=== PATIENT | female | born 1960 | race Caucasian/White ===

== ENCOUNTER 2018-11-20 10:13 | Inpatient (IN) | payer OTHER, BC ==
[~2018-11-20 10:13] MED LIST: CEFAZOLIN 1 GM INJ; DESFLURANE 15 MIN; LIDOCAINE 2% (SDV) 5 ML INJ
[2018-11-20] MEDS ORDERED: GELATIN SIZE 100 SPONGE (12:21)
[2018-11-20] MEDS ORDERED: PROPOFOL 20 ML (12:24)
[2018-11-20] MEDS ORDERED: ROCURONIUM 50 MG INJ (12:30)
[2018-11-20] MEDS ORDERED: HYDROmorphONE 2 MG/ML SYG (12:30)
[2018-11-20] MEDS ORDERED: PHENYLephrine 10 MG INJ (12:32)
[2018-11-20] MEDS: D5W-0.45 NACL + KCL 20 MEQ 1,000 ML IV ×3 (12:36→22:36)
[2018-11-20] MEDS: CEFAZOLIN 1 GM/50 ML (PMX) 50 ML IVPB ×2 (13:00→20:57)
[2018-11-20] MEDS ORDERED: ACETAMINOPHEN 325 MG TAB PO (13:00)
[2018-11-20] MEDS ORDERED: NALOXONE (0.4 MG/ML) INJ IV (13:00)
[2018-11-20] MEDS ORDERED: AL HYDROX/MG HYDROX/SIMETH 30 ML CUP PO (13:00)
[2018-11-20] MEDS ORDERED: DIPHENHYDRAMINE 50 MG INJ IV (13:00)
[2018-11-20] MEDS ORDERED: CEPASTAT LOZENGE MT (13:00)
[2018-11-20] MEDS ORDERED: DIPHENHYDRAMINE 25 MG CAP PO (13:00)
[2018-11-20] MEDS ORDERED: HYDROmorphONE 0.5 MG/0.5 ML SYG IV (13:00)
[2018-11-20] MEDS ORDERED: BISACODYL 10 MG SUPP PR (13:00)
[2018-11-20] MEDS: SURGIFOAM POWDER 1 GM KIT (14:02)
[2018-11-20] MEDS: BUPIVACAINE 0.5%/EPI (SDV) 30 ML INJ (14:02)
[2018-11-20] MEDS: THROMBIN (BOVINE) 5,000 UNIT VIAL TP (14:02)
[2018-11-20] MEDS: POLYMYXIN/BACITRACIN 1L IRRIG (14:02)
[2018-11-20] MEDS ORDERED: DEXAMETHASONE 4 MG/ML 5 ML INJ (14:39)
[2018-11-20] MEDS ORDERED: ONDANSETRON 4 MG INJ (14:40)
[2018-11-20] MEDS ORDERED: FENTAnyl 50 MCG/ML VIAL (16:37)
[2018-11-20] MEDS: HYDROmorphONE 0.2 MG/ML PCA IV ×2 (16:46→23:14)
[2018-11-20] MEDS: FENTAnyl 50 MCG/ML VIAL IV ×2 (16:48→16:54)
[2018-11-20] MEDS: HYDROmorphONE 1 MG/5 ML IV SYRINGE IV ×2 (16:53→17:03)
[2018-11-20] MEDS ORDERED: KETOROLAC 30 MG INJ IV (17:00)
[2018-11-20] MEDS ORDERED: HYDROmorphONE 1 MG/5 ML IV SYRINGE IV (17:00)
[2018-11-20] MEDS ORDERED: hydrALAzine 20 MG INJ IV (17:00)
[2018-11-20] MEDS ORDERED: FENTAnyl 50 MCG/ML VIAL IV ×2 (17:00)
[2018-11-20] MEDS ORDERED: OXYCODONE/ACETAMINOPHEN (5/325) TAB PO ×2 (17:00)
[2018-11-20] MEDS ORDERED: EPHEDrine SULFATE 50 MG/5 ML SYG IV (17:00)
[2018-11-20] MEDS ORDERED: LABETALOL HCL 20MG INJ IV (17:00)
[2018-11-20] MEDS ORDERED: MIDAZOLAM 1 MG/ML 2 ML INJ IV (17:00)
[2018-11-20] MEDS ORDERED: ALBUTEROL 0.083% (NEB) 2.5 MG/3 ML AMP HHN (17:00)
[2018-11-20] MEDS ORDERED: ONDANSETRON 4 MG INJ IV (17:00)
[2018-11-20] MEDS ORDERED: MEPERIDINE 25 MG INJ IV (17:00)
[2018-11-20] MEDS ORDERED: METOCLOPRAMIDE 10 MG INJ IV (17:00)
[2018-11-20] MEDS: DIPHENHYDRAMINE 50 MG INJ IV (17:03)
[2018-11-20] MEDS: ONDANSETRON 4 MG INJ IV (18:59)
[2018-11-20] MEDS: CYCLOBENZAPRINE 10 MG TAB PO (19:19)
[2018-11-20] MEDS: DOCUSATE SODIUM 100 MG CAP PO (20:57)
[2018-11-21] MEDS: LEVOTHYROXINE 150 MCG TAB PO (01:19)
[2018-11-21] MEDS: CEFAZOLIN 1 GM/50 ML (PMX) 50 ML IVPB ×4 (05:13→23:20)
[2018-11-21] MEDS: PANTOPRAZOLE 40 MG INJ IV (05:13)
[2018-11-21] MEDS: D5W-0.45 NACL + KCL 20 MEQ 1,000 ML IV ×3 (05:15→20:07)
[2018-11-21 05:41] LABS: ADD MAN DIFF? NO
[2018-11-21 05:47] LABS: BASOPHILS % 0.1 % (0.0-2.0); EOSINOPHILS % 0.1 % (0.0-7.0); HEMATOCRIT 34.6 % (37.0-47.0); HEMOGLOBIN 10.7 g/dl (12.0-16.0); LYMPHOCYTES # 1.7 10^3/ul (0.8-2.9); LYMPHOCYTES % 19.9 % (15.0-51.0); MEAN CORPUSCULAR HEMOGLOBIN 25.1 pg (29.0-33.0); MEAN CORPUSCULAR HGB CONC 30.9 g/dl (32.0-37.0); MEAN CORPUSCULAR VOLUME 81.2 fl (82.0-101.0); MEAN PLATELET VOLUME 9.1 fl (7.4-10.4); MONOCYTE # 0.9 10^3/ul (0.3-0.9); NEUTROPHIL # 6.1 10^3/ul (1.6-7.5); NEUTROPHILS % 69.8 % (39.0-77.0); PLATELET COUNT 360 10^3/UL (140-415); RED BLOOD COUNT 4.26 10^6/ul (4.20-5.40); RED CELL DISTRIBUTION WIDTH 14.9 % (11.5-14.5)
[2018-11-21 05:47] LABS: WHITE BLOOD COUNT 8.8 10^3/ul (4.8-10.8)
[2018-11-21] MEDS ORDERED: CEFAZOLIN 2 GM/50 ML (PMX) 50 ML IVPB (06:00)
[2018-11-21] MEDS ORDERED: LACTATED RINGER'S 1,000 ML IV* (06:00)
[2018-11-21 06:21] LABS: ANION GAP 8 (5-13); BLOOD UREA NITROGEN 11 mg/dl (7-20); CALCIUM 8.5 mg/dl (8.4-10.2); CARBON DIOXIDE 31 mmol/L (21-31); CHLORIDE 102 mmol/L (97-110); CREATININE 0.67 mg/dl (0.44-1.00); Estimated GFR > 60 mL/min (>60); GLUCOSE 121 mg/dl (70-220); MAGNESIUM 1.8 mg/dl (1.7-2.5); POTASSIUM 4.3 mmol/L (3.5-5.1); SODIUM 141 mmol/L (135-144)
[2018-11-21] MEDS: HYDROmorphONE 0.2 MG/ML PCA IV ×2 (07:41→19:38)
[2018-11-21] MEDS: DOCUSATE SODIUM 100 MG CAP PO ×2 (08:00→20:51)
[2018-11-21] MEDS: SOD CHLORIDE 0.9% 250 ML IV (09:08)
[2018-11-21] MEDS ORDERED: THROMBIN (BOVINE) 5,000 UNIT VIAL TP (09:23)
[2018-11-21] MEDS ORDERED: HEPARIN 1000 UNITS/ML 10 ML INJ (09:47)
[2018-11-21] MEDS ORDERED: CEFAZOLIN 1 GM INJ ×2 (10:28→15:46)
[2018-11-21] MEDS ORDERED: DIPHENHYDRAMINE 50 MG INJ IV ×2 (10:30→16:30)
[2018-11-21] MEDS ORDERED: NALOXONE (0.4 MG/ML) INJ IV (10:30)
[2018-11-21] MEDS ORDERED: DIPHENHYDRAMINE 25 MG CAP PO (10:30)
[2018-11-21] MEDS ORDERED: ONDANSETRON 4 MG INJ IV ×2 (10:30→16:30)
[2018-11-21] MEDS ORDERED: MIDAZOLAM 1 MG/ML 2 ML INJ (10:33)
[2018-11-21] MEDS: BUPIVACAINE 0.5%/EPI (SDV) 30 ML INJ (12:00)
[2018-11-21] MEDS: SURGIFOAM POWDER 1 GM KIT (12:00)
[2018-11-21] MEDS: THROMBIN (BOVINE) 5,000 UNIT VIAL TP (12:01)
[2018-11-21] MEDS: POLYMYXIN/BACITRACIN 1L IRRIG IRR (12:03)
[2018-11-21] MEDS ORDERED: GLYCOPYRROLATE 0.4 MG INJ (15:45)
[2018-11-21] MEDS ORDERED: METOCLOPRAMIDE 10 MG INJ (15:45)
[2018-11-21] MEDS ORDERED: ONDANSETRON 4 MG INJ (15:45)
[2018-11-21] MEDS ORDERED: PROPOFOL 100 ML (15:45)
[2018-11-21] MEDS ORDERED: ROCURONIUM 50 MG INJ (15:45)
[2018-11-21] MEDS ORDERED: LIDOCAINE 2% (SDV) 5 ML INJ (15:45)
[2018-11-21] MEDS ORDERED: NEOSTIGMINE 3 MG/3 ML SYRINGE (15:45)
[2018-11-21] MEDS ORDERED: FENTAnyl 50 MCG/ML VIAL (16:19)
[2018-11-21] MEDS ORDERED: METOCLOPRAMIDE 10 MG INJ IV (16:30)
[2018-11-21] MEDS ORDERED: MIDAZOLAM 1 MG/ML 2 ML INJ IV (16:30)
[2018-11-21] MEDS ORDERED: FENTAnyl 50 MCG/ML VIAL IV ×2 (16:30)
[2018-11-21] MEDS: HYDROmorphONE 0.5 MG/0.5 ML SYG IV (17:37)
[2018-11-21] MEDS: CEPASTAT LOZENGE MT (21:02)
[2018-11-22] MEDS: ACETAMINOPHEN 325 MG TAB PO (00:39)
[2018-11-22] MEDS: CYCLOBENZAPRINE 10 MG TAB PO (01:51)
[2018-11-22] MEDS: D5W-0.45 NACL + KCL 20 MEQ 1,000 ML IV ×2 (04:42→15:27)
[2018-11-22] MEDS: CEFAZOLIN 1 GM/50 ML (PMX) 50 ML IVPB (04:42)
[2018-11-22 05:08] LABS: ADD MAN DIFF? NO
[2018-11-22 05:19] LABS: BASOPHILS % 0.4 % (0.0-2.0); EOSINOPHILS % 0.1 % (0.0-7.0); HEMOGLOBIN 10.5 g/dl (12.0-16.0); LYMPHOCYTES # 1.7 10^3/ul (0.8-2.9); LYMPHOCYTES % 14.5 % (15.0-51.0); MEAN CORPUSCULAR HEMOGLOBIN 25.4 pg (29.0-33.0); MEAN CORPUSCULAR HGB CONC 30.9 g/dl (32.0-37.0); MEAN CORPUSCULAR VOLUME 82.1 fl (82.0-101.0); MEAN PLATELET VOLUME 8.5 fl (7.4-10.4); MONOCYTE # 1.2 10^3/ul (0.3-0.9); MONOCYTES % 10.3 % (0.0-11.0); NEUTROPHIL # 8.4 10^3/ul (1.6-7.5); NEUTROPHILS % 74.1 % (39.0-77.0); PLATELET COUNT 249 10^3/UL (140-415); RED BLOOD COUNT 4.14 10^6/ul (4.20-5.40); RED CELL DISTRIBUTION WIDTH 14.8 % (11.5-14.5)
[2018-11-22 05:19] LABS: WHITE BLOOD COUNT 11.4 10^3/ul (4.8-10.8)
[2018-11-22 05:38] LABS: ANION GAP 5 (5-13); BLOOD UREA NITROGEN 7 mg/dl (7-20); CALCIUM 8.4 mg/dl (8.4-10.2); CARBON DIOXIDE 35 mmol/L (21-31); CHLORIDE 97 mmol/L (97-110); CREATININE 0.66 mg/dl (0.44-1.00); Estimated GFR > 60 mL/min (>60); GLUCOSE 114 mg/dl (70-220); MAGNESIUM 1.5 mg/dl (1.7-2.5); POTASSIUM 4.4 mmol/L (3.5-5.1); SODIUM 137 mmol/L (135-144)
[2018-11-22] MEDS: LEVOTHYROXINE 150 MCG TAB PO (06:11)
[2018-11-22] MEDS: HYDROmorphONE 0.2 MG/ML PCA IV ×2 (06:16→14:37)
[2018-11-22] MEDS: DOCUSATE SODIUM 100 MG CAP PO ×2 (08:33→20:28)
[2018-11-22] MEDS: MAGNESIUM SULFATE 2 GM/50 ML 50 ML IVPB (15:44)
[2018-11-22] MEDS: SOD CHLORIDE 0.9% 250 ML IV (18:37)
[2018-11-22] MEDS: BISACODYL 10 MG SUPP PR (23:54)
[2018-11-23] MEDS: HYDROmorphONE 0.2 MG/ML PCA IV (01:34)
[2018-11-23] MEDS: D5W-0.45 NACL + KCL 20 MEQ 1,000 ML IV ×3 (01:51→23:13)
[2018-11-23] MEDS: AL HYDROX/MG HYDROX/SIMETH 30 ML CUP PO (03:47)
[2018-11-23] MEDS: CYCLOBENZAPRINE 10 MG TAB PO (03:47)
[2018-11-23 05:34] LABS: BASOPHILS % 0.1 % (0.0-2.0); EOSINOPHILS # 0.1 10^3/ul (0.0-0.5); EOSINOPHILS % 0.3 % (0.0-7.0); HEMOGLOBIN 10.9 g/dl (12.0-16.0); LYMPHOCYTES % 13.5 % (15.0-51.0); MEAN CORPUSCULAR HEMOGLOBIN 24.9 pg (29.0-33.0); MEAN CORPUSCULAR HGB CONC 31.1 g/dl (32.0-37.0); MEAN CORPUSCULAR VOLUME 80.1 fl (82.0-101.0); MEAN PLATELET VOLUME 8.7 fl (7.4-10.4); MONOCYTE # 1.2 10^3/ul (0.3-0.9); MONOCYTES % 7.8 % (0.0-11.0); NEUTROPHIL # 11.6 10^3/ul (1.6-7.5); PLATELET COUNT 344 10^3/UL (140-415); RED BLOOD COUNT 4.37 10^6/ul (4.20-5.40); RED CELL DISTRIBUTION WIDTH 14.6 % (11.5-14.5)
[2018-11-23 05:34] LABS: WHITE BLOOD COUNT 14.9 10^3/ul (4.8-10.8)
[2018-11-23 05:35] LABS: ADD MAN DIFF? NO
[2018-11-23] MEDS: LEVOTHYROXINE 150 MCG TAB PO (05:50)
[2018-11-23 05:53] LABS: ANION GAP 10 (5-13); BLOOD UREA NITROGEN 10 mg/dl (7-20); CALCIUM 8.5 mg/dl (8.4-10.2); CARBON DIOXIDE 26 mmol/L (21-31); CHLORIDE 97 mmol/L (97-110); CREATININE 0.75 mg/dl (0.44-1.00); Estimated GFR > 60 mL/min (>60); GLUCOSE 133 mg/dl (70-220); POTASSIUM 3.8 mmol/L (3.5-5.1); SODIUM 133 mmol/L (135-144)
[2018-11-23] MEDS ORDERED: METOPROLOL 5 MG INJ (07:00)
[2018-11-23] MEDS: SOD CHLORIDE 0.9% 250 ML IV (09:11)
[2018-11-23] MEDS: DOCUSATE SODIUM 100 MG CAP PO ×2 (09:11→23:13)
[2018-11-23] MEDS ORDERED: HYDROCODONE/APAP (10/325) TAB PO ×2 (10:00)
[2018-11-23] MEDS: DIGOXIN 500 MCG INJ IV (10:24)
[2018-11-23] MEDS: POTASSIUM CHLORIDE (SR) 20 MEQ TAB PO (10:25)
[2018-11-23] MEDS: DILTIAZEM-D5W 125MG/125ML DRIP 125 ML IV (11:58)
[2018-11-23] MEDS: MAGNESIUM SULFATE 2 GM/50 ML 50 ML IVPB (12:14)
[2018-11-23] MEDS: DIGOXIN 0.25 MG TAB PO ×2 (15:57→23:14)
[2018-11-23 16:53] LABS: ADD UMIC YES; UR ASCORBIC ACID NEGATIVE (NEGATIVE); UR BILIRUBIN (Dip) NEGATIVE (NEGATIVE); UR BLOOD (Dip) 2+ mg/dL (NEGATIVE); UR CLARITY CLEAR (CLEAR); UR COLOR YELLOW (YELLOW); UR GLUCOSE (Dip) NEGATIVE (NEGATIVE); UR KETONES (Dip) NEGATIVE (NEGATIVE); UR LEUKOCYTE ESTERASE (Dip) NEGATIVE Leu/ul (NEGATIVE); UR MUCUS FEW /HPF (NONE SEEN); UR NITRITE (Dip) NEGATIVE (NEGATIVE); UR RBC 3 /HPF (0-5); UR SPECIFIC GRAVITY (Dip) 1.006 (1.003-1.030); UR TOTAL PROTEIN (Dip) NEGATIVE (NEGATIVE); UR UROBILINOGEN (Dip) NEGATIVE (NEGATIVE); UR WBC 2 /HPF (0-5)
[2018-11-23] MEDS: HYDROCODONE/APAP (10/325) TAB PO (17:44)
[2018-11-23] MEDS: HYDROmorphONE 0.5 MG/0.5 ML SYG IV (23:05)
[2018-11-24] MEDS: DIGOXIN 0.25 MG TAB PO
[2018-11-24] MEDS: CYCLOBENZAPRINE 10 MG TAB PO ×3 (00:04→20:43)
[2018-11-24] MEDS: HYDROCODONE/APAP (10/325) TAB PO ×6 (00:10→20:44)
[2018-11-24 05:35] LABS: ADD MAN DIFF? NO
[2018-11-24 05:39] LABS: BASOPHILS % 0.1 % (0.0-2.0); EOSINOPHILS # 0.2 10^3/ul (0.0-0.5); EOSINOPHILS % 3.1 % (0.0-7.0); HEMATOCRIT 27.4 % (37.0-47.0); HEMOGLOBIN 8.4 g/dl (12.0-16.0); LYMPHOCYTES # 1.6 10^3/ul (0.8-2.9); LYMPHOCYTES % 20.2 % (15.0-51.0); MEAN CORPUSCULAR HEMOGLOBIN 24.7 pg (29.0-33.0); MEAN CORPUSCULAR HGB CONC 30.7 g/dl (32.0-37.0); MEAN CORPUSCULAR VOLUME 80.6 fl (82.0-101.0); MEAN PLATELET VOLUME 8.9 fl (7.4-10.4); MONOCYTE # 0.7 10^3/ul (0.3-0.9); MONOCYTES % 8.9 % (0.0-11.0); NEUTROPHIL # 5.2 10^3/ul (1.6-7.5); NEUTROPHILS % 67.3 % (39.0-77.0); PLATELET COUNT 230 10^3/UL (140-415); RED CELL DISTRIBUTION WIDTH 14.4 % (11.5-14.5)
[2018-11-24 05:39] LABS: WHITE BLOOD COUNT 7.7 10^3/ul (4.8-10.8)
[2018-11-24 06:08] LABS: ANION GAP 4 (5-13); BLOOD UREA NITROGEN 10 mg/dl (7-20); CARBON DIOXIDE 27 mmol/L (21-31); CHLORIDE 107 mmol/L (97-110); CREATININE 0.55 mg/dl (0.44-1.00); Estimated GFR > 60 mL/min (>60); GLUCOSE 153 mg/dl (70-220); MAGNESIUM 2.3 mg/dl (1.7-2.5); SODIUM 138 mmol/L (135-144)
[2018-11-24] MEDS: LEVOTHYROXINE 150 MCG TAB PO (06:50)
[2018-11-24] MEDS: DOCUSATE SODIUM 100 MG CAP PO ×2 (08:09→20:43)
[2018-11-24] MEDS: D5W-0.45 NACL + KCL 20 MEQ 1,000 ML IV (08:11)
[2018-11-24 10:31] LABS: THYROID STIMULATING HORMONE < 0.015 MIU/L (0.465-4.680)
[2018-11-24] MEDS: HYDROmorphONE 0.5 MG/0.5 ML SYG IV (11:12)
[2018-11-24] MEDS: LACTULOSE 30ML CUP PO (12:13)
[2018-11-25] MEDS: HYDROmorphONE 0.5 MG/0.5 ML SYG IV ×3 (02:11→11:51)
[2018-11-25 05:44] LABS: ADD MAN DIFF? NO
[2018-11-25 05:47] LABS: WHITE BLOOD COUNT 7.4 10^3/ul (4.8-10.8)
[2018-11-25 05:47] LABS: BASOPHILS % 0.1 % (0.0-2.0); EOSINOPHILS # 0.2 10^3/ul (0.0-0.5); EOSINOPHILS % 2.7 % (0.0-7.0); HEMOGLOBIN 8.9 g/dl (12.0-16.0); LYMPHOCYTES # 1.4 10^3/ul (0.8-2.9); LYMPHOCYTES % 19.1 % (15.0-51.0); MEAN CORPUSCULAR HGB CONC 30.7 g/dl (32.0-37.0); MEAN CORPUSCULAR VOLUME 81.5 fl (82.0-101.0); MEAN PLATELET VOLUME 9.3 fl (7.4-10.4); MONOCYTE # 0.7 10^3/ul (0.3-0.9); MONOCYTES % 9.8 % (0.0-11.0); NEUTROPHIL # 5.1 10^3/ul (1.6-7.5); PLATELET COUNT 286 10^3/UL (140-415); RED BLOOD COUNT 3.56 10^6/ul (4.20-5.40); RED CELL DISTRIBUTION WIDTH 14.3 % (11.5-14.5)
[2018-11-25] MEDS: CYCLOBENZAPRINE 10 MG TAB PO (05:48)
[2018-11-25] MEDS: LEVOTHYROXINE 150 MCG TAB PO (06:21)
[2018-11-25 06:25] LABS: ANION GAP 4 (5-13); BLOOD UREA NITROGEN 8 mg/dl (7-20); CALCIUM 8.6 mg/dl (8.4-10.2); CARBON DIOXIDE 31 mmol/L (21-31); CHLORIDE 103 mmol/L (97-110); CREATININE 0.51 mg/dl (0.44-1.00); Estimated GFR > 60 mL/min (>60); GLUCOSE 90 mg/dl (70-220); MAGNESIUM 1.9 mg/dl (1.7-2.5); POTASSIUM 3.8 mmol/L (3.5-5.1); SODIUM 138 mmol/L (135-144)
[2018-11-25 06:51] LABS: FREE T4 (FREE THYROXINE) 1.86 ng/dl (0.64-1.79)
[2018-11-25] MEDS: HYDROCODONE/APAP (10/325) TAB PO ×2 (08:27→15:49)
[2018-11-25] MEDS: DOCUSATE SODIUM 100 MG CAP PO (08:27)
[2018-11-25] MEDS: METOPROLOL (XL) 25 MG TAB PO (08:28)
[2018-11-26] MEDS ORDERED: LEVOTHYROXINE 137 MCG TAB PO (07:00)
== END 2018-11-25 16:31 | disposition home health service (06) | DRG 455 ==
LOC: 6WM 11-23 10:00 → REC 10:13 → MS1 18:30
PROC: 0SG10A0 Fusion of 2 or more Lumbar Vertebral Joints with Interbody Fusion Device, Anterior Approach, Anterior Column, Open Approach (ICD-10-PCS; principal; 2018-11-20 12:00)
PROC: 0ST20ZZ Resection of Lumbar Vertebral Disc, Open Approach (ICD-10-PCS; 2018-11-20 12:00)
PROC: 4A11X4G Monitoring of Peripheral Nervous Electrical Activity, Intraoperative, External Approach (ICD-10-PCS; 2018-11-20 12:00)
PROC: 0SG10K1 Fusion of 2 or more Lumbar Vertebral Joints with Nonautologous Tissue Substitute, Posterior Approach, Posterior Column, Open Approach (ICD-10-PCS; 2018-11-20 12:46)
PROC: 0SG30AJ Fusion of Lumbosacral Joint with Interbody Fusion Device, Posterior Approach, Anterior Column, Open Approach (ICD-10-PCS; 2018-11-20 12:46)
PROC: 0SG30K1 Fusion of Lumbosacral Joint with Nonautologous Tissue Substitute, Posterior Approach, Posterior Column, Open Approach (ICD-10-PCS; 2018-11-20 12:46)
PROC: 0ST40ZZ Resection of Lumbosacral Disc, Open Approach (ICD-10-PCS; 2018-11-20 12:46)
PROC: 4A11X4G Monitoring of Peripheral Nervous Electrical Activity, Intraoperative, External Approach (ICD-10-PCS; 2018-11-20 12:46)
DX: M41.86 Other forms of scoliosis, lumbar region (principal); M48.061 Spinal stenosis, lumbar region without neurogenic claudication; M54.16 Radiculopathy, lumbar region; E03.9 Hypothyroidism, unspecified; E83.42 Hypomagnesemia; I48.0 Paroxysmal atrial fibrillation; E05.80 Other thyrotoxicosis without thyrotoxic crisis or storm; T38.1X5A Adverse effect of thyroid hormones and substitutes, initial encounter
CPT/HCPCS: 72100; 72114; 72131; 80048; 81001; 82962; 83735; 84439; 84443; 85025; 86850; 86900; 86901; 86920; 86999; 88304; 93005; 93306; 97110; 97116; 97162; 97164; 97530